=== PATIENT | male | born 2000 | race Caucasian/White ===

== ENCOUNTER 2025-02-08 15:20 | Emergency (ER) | payer BC ==
[~2025-02-08] VITALS: Ht 177.8 cm; Wt 90.0 kg
[2025-02-08 15:26] VITALS: O2SAT 100
[2025-02-08 16:15] LABS: CREATININE 1.1 mg/dL (0.6-1.3); UREA NITROGEN BLOOD 11 mg/dL (9-23)
[2025-02-08 16:16] LABS: ETHANOL BLOOD < 10 mg/dL (<10)
[2025-02-08 16:21] LABS: BASOPHILS % 0.2 % (0.0-2.0); EOSINOPHILS % 1.8 % (0.0-5.0); HEMATOCRIT. 43.8 % (42.0-52.0); HEMOGLOBIN. 15.1 g/dL (14.0-18.0); LYMPHOCYTES % 35.3 % (20.0-50.0); MEAN PLATELET VOLUME 8.9 fl (7.4-10.4); MONOCYTES % 6.3 % (2.0-8.0); NEUTROPHILS % 56.4 % (40.0-76.0); PLATELET 302 x1000/uL (130-400); RED BLOOD CELL COUNT 5.33 mill/uL (4.7-6.1); RED CELL DISTRIBUTION WIDTH 13.2 % (11.6-14.6)
[2025-02-08 16:58] LABS: ASPARTATE AMINOTRANSFERASE 27 IU/L (<34); BILIRUBIN DIRECT 0.1 mg/dL (<=3.0); BILIRUBIN TOTAL 0.4 mg/dL (0.1-1.0); PROTEIN TOTAL 7.5 g/dL (6.0-8.3)
[2025-02-08] MEDS: DEXT 5% IV SCH ×2 (17:12→19:07)
[2025-02-08] MEDS: WATER IV SCH ×2 (17:12→19:07)
[2025-02-08] MEDS: ACETYLCYSTEINE IV SCH ×2 (17:12→19:07)
[2025-02-08] MEDS: ONDANSETRON HCL 4MG/2ML INJ IV ONE (17:13)
[2025-02-08] MEDS: SODIUM CHLORIDE 0.9% 1,000 ML IV ONE (17:13)
[2025-02-08 17:22] LABS: INR 0.9
[2025-02-08 20:28] VITALS: BP 134/80; PULSE 84; RESP 15; TEMP 36.8; O2SAT 100
[2025-02-08] MEDS ORDERED: WATER IV SCH (21:30)
[2025-02-08] MEDS ORDERED: DEXTROSE 5% IV SCH (21:30)
[2025-02-08] MEDS ORDERED: ACETYLCYSTEINE IV SCH (21:30)
== END 2025-02-08 20:30 | disposition home or self-care (01) ==
LOC: ER 15:20 → ENRESERV 18:42 → ER 20:30 → CMPBEDREQ 02-09 08:55
DX: T39.1X1A Poisoning by 4-Aminophenol derivatives, accidental (unintentional), initial encounter (principal); F31.9 Bipolar disorder, unspecified; Z98.890 Other specified postprocedural states; Y92.89 Other specified places as the place of occurrence of the external cause
CPT/HCPCS: 80076; 80048; 80307; 80329; 80320; 85025; 85610; 36415; 93005; 96365; 96366; 96375; 99291; J0132; J2405; J7060 ×2; J7030; Z7610; J7070; G0480